=== PATIENT | female | born 1975 | race Caucasian/White ===

== ENCOUNTER 2021-09-13 13:00 | Outpatient (CLI) | payer BC, SELFPAY ==
--- NOTE | ~2021-09-13 | XR_ITS ---
EXAMINATION: XR thoracic spine 3V DATE: 09/13/2021 13:30 INDICATION: Back pain TECHNIQUE: AP, lateral and lateral swimmer's views of the thoracic spine were obtained. COMPARISON: None. FINDINGS: There is no fracture, dislocation, or subluxation. There is mild loss of intervertebral dis c space height in the lower thoracic spine. Small degenerative osteophytes project from the anterior endplates of multiple vertebral bodies. IMPRESSION: 1. Mild thoracic spondylosis. Reviewed, dictated and finalized at location B.
--- NOTE | ~2021-09-13 | XR_ITS ---
EXAMINATION:XR_[id number]_CR DATE: 09/13/2021 13:31 INDICATION: Neck pain TECHNIQUE: AP, lateral, and odontoid views of the cervical spine are provided. COMPARISON: None FINDINGS: Alignment is normal. The odontoid is intact. No fracture is identified. The vertebral body heights are normal. There is mild loss of intervertebral disc space height at C5-6. Minimal posterior endplate spurring is seen at C5-6. There is mild uncovertebral joint osteoarthritis at C5-6. Prevert ebral soft tissues are normal. IMPRESSION: 1. Mild cervical spondylosis. Reviewed, dictated and finalized at location B.
== END 2021-09-13 13:01 | disposition home or self-care (01) ==
PROVIDERS: PCP Family Medicine; Visit Provider Physician Assistant
DX: M47.894 Other spondylosis, thoracic region (principal); M47.892 Other spondylosis, cervical region
CPT/HCPCS: 72040; 72072

== ENCOUNTER 2021-09-27 15:06 | Outpatient (CLI) | payer BC, SELFPAY ==
--- NOTE | ~2021-09-27 | MR_ITS ---
EXAMINATION: MR chest wo/w con DATE: 09/27/2021 16:29 INDICATION: Disorder of bone with lesion at the anterior right second rib TECHNIQUE: Magnetic resonance imaging (MRI) of the anterior right chest wall was performed without an d with 9 mL Multihance intravenous contrast. A marker was placed over the mass. Sequences included a xial, sagittal and coronal T1-weighted FSE and T2-weighted FS FSE. Precontrast axial T1-weighted FS F SE and post contrast axial, sagittal and coronal T1-weighted FS FSE were also obtained. COMPARISON: Radiographs dated 09/13/2021 FINDINGS: There is a lesion arising from the deep margin of the anterior right second rib which measures 2.4 x 2.1 x 0.8 cm. There is a thin rim of enhancement along the deep margin which could be related to the underlying pleura but no enhancement within the lesion. There is low signal intensity thickening of t he underlying cortex which corresponds to increased sclerosis on the prior radiographs with ring and arc-like configuration apparent on the AP radiograph of the cervical and thoracic spine and which carmela ng with the appearance on MRI would be most consistent with an osteochondroma. There is normal bone m arrow signal throughout including underlying the lesion at the anterior right second rib. Partially v isualized right breast implant. A few small normal-sized right axillary lymph nodes. IMPRESSION: 1. 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 Reviewed, dictated and finalized at location B. IMPRESSION: 1. 2.4 x 2.1 x 0.8 cm osteochondroma along the deep margin of the anterior righ t second rib.
[2021-09-27 15:47] LABS: Estimated Glomerular Filt Rate > 60
== END 2021-09-27 15:07 | disposition home or self-care (01) ==
PROVIDERS: PCP Family Medicine; Visit Provider Physician Assistant
DX: M54.9 Dorsalgia, unspecified (principal); M89.9 Disorder of bone, unspecified
CPT/HCPCS: 71552; A9577

== ENCOUNTER 2022-03-14 14:10 | Outpatient (CLI) | payer BC, SELFPAY ==
--- NOTE | ~2022-03-14 | MM_ITS ---
EXAMINATION: MM scrn mallika implant BI w miriam HISTORY: Screening mammogram TECHNIQUE: Craniocaudal and mediolateral oblique 3-D tomosynthesis images with implant displacement a nd synthetic 2-D images were generated. Craniocaudal and mediolateral oblique views of the breasts wi thout implant displacement were obtained using full field digital mammography. CAD analysis was submi tted and interpreted. COMPARISON: None, baseline BREAST PARENCHYMAL COMPOSITION: There are scattered areas of fibroglandular density. FINDINGS: There is no evidence of suspicious mass, calcification, or architectural distortion to sugg est malignancy in either breast. IMPRESSION: 1. No mammographic evidence of malignancy. 2. Recommend routine screening mammography in one year. BI-RADS Category 1: Negative Reviewed, dictated and finalized at location A.
== END 2022-03-14 14:11 | disposition home or self-care (01) ==
LOC: CHSIMG 14:13
PROVIDERS: PCP Family Medicine; Visit Provider Family Medicine
DX: Z12.31 Encounter for screening mammogram for malignant neoplasm of breast (principal)
CPT/HCPCS: 77063; 77067

== ENCOUNTER 2022-04-09 12:19 | Outpatient (CLI) | payer BC, SELFPAY ==
--- NOTE | ~2022-04-09 | XR_ITS ---
EXAMINATION: XR knee LT min 4V DATE: 04/09/2022 13:15 INDICATION: Left knee pain TECHNIQUE: Four views of the left knee were obtained. COMPARISON: None. FINDINGS: Alignment is normal. No fracture or osteochondral lesion. There is mild tricompartmental os teoarthritis characterized by tiny marginal osteophytes. No joint effusion/synovitis. Soft tissues a re unremarkable. IMPRESSION: 1. No acute osseous abnormality. Reviewed, dictated and finalized at location A.
--- NOTE | ~2022-04-09 | XR_ITS ---
EXAMINATION: XR knee RT min 4V DATE: 04/09/2022 13:15 INDICATION: Right knee pain TECHNIQUE: Four views of the right knee were obtained. COMPARISON: None. FINDINGS: Alignment is normal. No fracture or osteochondral lesion. There is mild tricompartmental os teoarthritis characterized by tiny marginal osteophytes. No joint effusion/synovitis. Soft tissues a re unremarkable. IMPRESSION: 1. No acute osseous abnormality. Reviewed, dictated and finalized at location A.
== END 2022-04-09 12:20 | disposition home or self-care (01) ==
PROVIDERS: PCP Internal Medicine; Visit Provider Internal Medicine
DX: M17.0 Bilateral primary osteoarthritis of knee (principal)
CPT/HCPCS: 73564

== ENCOUNTER 2022-04-15 09:13 | Outpatient (CLI) | payer BC, SELFPAY ==
--- NOTE | ~2022-04-15 | XR_ITS ---
XR lumbar spine 2-3V DATE: 04/15/2022 09:43 INDICATION: Low back pain for 2 weeks TECHNIQUE: AP, lateral, coned lateral lumbosacral views COMPARISON: None FINDINGS: Normal alignment of the lumbar spine. No fracture or bone destruction or spondylolisthesis. The included lower thoracic and lumbar pedicles are intact. Lumbar and lumbosacral interspaces are well preserved. There is minimal degenerative spurring of the lumbar spine. The sacroiliac joints are intact. IMPRESSION: Minimal degenerative change Reviewed, dictated and finalized at location A. IMPRESSION: Minimal degenerative change
--- NOTE | ~2022-04-15 | XR_ITS ---
XR foot LT min 3V DATE: 04/15/2022 09:44 INDICATION: Left foot pain TECHNIQUE: 4 views COMPARISON: None FINDINGS: No fracture or dislocation, periosteal reaction or bone destruction. Joint spaces are prese rved. No erosive change. IMPRESSION: No significant abnormality Reviewed, dictated and finalized at location A. IMPRESSION: No significant abnormality
== END 2022-04-15 09:14 | disposition home or self-care (01) ==
PROVIDERS: PCP Internal Medicine; Visit Provider Internal Medicine
DX: M47.816 Spondylosis without myelopathy or radiculopathy, lumbar region (principal); M79.89 Other specified soft tissue disorders
CPT/HCPCS: 72100; 73630